=== PATIENT | male | born 1990 | race Asian ===

== ENCOUNTER → 2019-03-14 18:04 | Outpatient (CLI) | payer OTHER, SELFPAY ==
--- NOTE | 2019-03-14 18:06 | DI.MRI.S_ITS ---
PROCEDURE: MR KNEE RT WO CON INDICATIONS: concern for MCL/meniscus injury, clinical concern for internal derangement TECHNIQUE: Noncontrast sagittal PD fast spin echo and T2 fast spin echo with fat saturation, sagittal 3-D FLASH with fat saturation; coronal T1 spin echo and PD fast spin echo with fat saturation, and axial PD fast spin echo with fat saturation through the knee. COMPARISON: None. FINDINGS: Image quality: Excellent. Menisci: The medial and lateral menisci demonstrate normal morphology and internal signal. The meniscal root ligaments appear intact. Cruciate ligaments: The anterior cruciate ligament is poorly seen, yet with a few fibers of the anterior cruciate ligament potentially intact, as on series 7 image 17. The posterior cruciate ligament appears normal. Medial structures: The medial collateral ligament appears intact. A mild amount of fluid can be seen along the MCL. The posterior oblique ligament, semimembranosus tendon insertions, oblique popliteal ligament, and meniscocapsular junction appear intact. Visualized portions of the pes anserinus tendons appear normal. No abnormal bursal fluid. Lateral structures: The lateral collateral ligament, long and short heads of the biceps femoris tendon appear intact. The popliteus tendon appears normal; the popliteofibular ligament appears intact. The posterosuperior and anteroinferior popliteomeniscal fascicles appear intact. The arcuate and fabellofibular ligaments appear intact, on either side of the lateral inferior geniculate artery. Iliotibial band appears normal. Anterior structures: The quadriceps and patellar tendons appear intact. Patellar alignment is normal. No femoral trochlear dysplasia or ventral trochlear prominence. No edema in the infrapatellar fat pad. Bones and cartilage: No bone marrow contusions or fractures. The cartilage of the medial and lateral femorotibial compartments, as well as the patellofemoral compartment, appears normal in thickness. Joint space: There is physiologic knee joint fluid. No Kenney's cyst. Normal appearing synovial plicae are incidentally noted. IMPRESSION: Anterior cruciate ligament tear. A few fibers of the anterior cruciate ligament may remain intact, however. Fluid is seen along the medial collateral ligament, which is suggestive of a strain. Dictated by: Howard Drummond M.D. on 03/14/2019 at 19:08 Approved by: Howard Drummond M.D. on 03/14/2019 at 19:11
== END ==
PROVIDERS: Referring Provider Physician Assistant; Visit Provider Physician Assistant
DX: S83.511A Sprain of anterior cruciate ligament of right knee, initial encounter (principal); X58.XXXA Exposure to other specified factors, initial encounter
CPT/HCPCS: 73721

== ENCOUNTER → 2021-12-31 15:31 | Outpatient (CLI) | payer OTHER, SELFPAY ==
--- NOTE | 2021-12-31 15:33 | DI.RAD.S_ITS ---
PROCEDURE: XR HAND LT MIN 3V INDICATIONS: Left pinky injury TECHNIQUE: 3 views of the hand(s) acquired. COMPARISON: None. FINDINGS: Bones: There is an apparent tiny avulsion fracture seen along the distal aspect of the proximal phalanx of the 5th finger measuring 2 mm. No additional focal bony abnormality can be seen. Soft tissues: No suspicious soft tissue calcifications. IMPRESSION: Apparent 2 mm avulsion fracture fragment seen adjacent to the distal aspect of the proximal phalanx of the 5th finger. Dictated by: Howard Drummond M.D. on 12/31/2021 at 17:34 Approved by: Howard Drummond M.D. on 12/31/2021 at 17:35
== END ==
PROVIDERS: Referring Provider Physician Assistant; Visit Provider Physician Assistant
DX: S69.92XA Unspecified injury of left wrist, hand and finger(s), initial encounter (principal); X58.XXXA Exposure to other specified factors, initial encounter
CPT/HCPCS: 73130

== ENCOUNTER 2022-09-09 10:53 | Emergency (ER) | payer OTHER, SELFPAY ==
[2022-09-09 11:01] VITALS: BP 132/65; PULSE 94; RESP 18; TEMP 36.6; O2SAT 99; BMI 23.6
[2022-09-09 11:06] VITALS: PULSE 99; O2SAT 97
--- NOTE | 2022-09-09 11:18 | ED.GENADULT ---
HPI - General Adult General Chief complaint: Fever Stated complaint: Bad Fever, Pain Time Seen by Provider: 09/09/22 10:58 Source: patient Mode of arrival: Ambulatory History of Present Illness HPI narrative: Patient is an otherwise healthy 32-year-old male is here for evaluation of a fever and sore throat and right ear pain. He denies any abdominal pain. No vomiting. He is having some dysuria. No skin rashes. No diarrhea. He was seen at an outside facility yesterday. Was negative for the flu. Also had a negative strep test. Had labs done which were unremarkable. Does have a throat culture that is pending. He has been taking Tylenol and ibuprofen but is also feeling very fatigued. Related Data Home Medications Medication Instructions Recorded Confirmed diphenhydramine HCl 25 mg capsule 25 mg PO BEDTIME 12/17/18 12/31/21 (Benadryl) Allergies Allergy/AdvReac Type Severity Reaction Status Date / Time No Known Drug Allergies Allergy Verified 12/31/21 14:34 Review of Systems Constitutional Constitutional: Reports system reviewed and no additional complaints, except as documented ENT Ears, Nose, Mouth, and Throat: Reports system reviewed and no additional complaints, except as documented Respiratory Respiratory: Reports system reviewed and no additional complaints, except as documented Gastrointestinal Gastrointestinal: Reports system reviewed and no additional complaints, except as documented Integumentary/Breasts Skin/Breast: Reports system reviewed and no additional complaints, except as documented Neurologic Neurologic: Reports system reviewed and no additional complaints, except as documented Allergic/Immunologic Allergic/Immunologic: Reports system reviewed and no additional complaints, except as documented Patient History Medical History Injury of left little finger Right knee injury Social History Smoking Status: Never smoker Smoking Status: Never smoker Exam Initial Vital Signs Initial Vital Signs: Vital Signs Temperature 97.8 F 09/09/22 11:01 Pulse Rate 94 H 09/09/22 11:01 Respiratory Rate 18 09/09/22 11:01 Blood Pressure 132/65 09/09/22 11:01 Pulse Oximetry 99 09/09/22 11:01 Oxygen Delivery Method Room Air 09/09/22 11:01 Const General: cooperative, comfortable and No ill appearing HENMA Head: normal to inspection and normocephalic Ears: EAC's normal and TM abnormal bulging bilaterally and wth effusion serous bilaterally; not erythematous Throat: posterior oropharynx normal Neck Lymphatic: lymphadenopathy Cardio Palpation: normal PMI Skin General: no rashes or lesions noted Neuro General: patient alert, patient awake and moves all extremities Extrem General: capillary refill normal Course Orders Ordered: Discontinued Medications Ibuprofen (Ibuprofen 400 Mg Tablet) 800 mg PO NOW ONE Stop: 09/09/22 11:20 Last Admin: 09/09/22 11:22 Dose: 800 mg Documented By: JUDIE Vital Signs Vital signs: Vital Signs - 8 hr 09/09/22 11:01 09/09/22 11:06 Temperature 97.8 F Pulse Rate 94 H 99 H Respiratory Rate 18 Blood Pressure 132/65 Pulse Oximetry 99 97 Oxygen Delivery Method Room Air Medical Decision Making Lab Data Labs: Urine Dip Bedside Urine Glucose Negative Bedside Urine Bilirubin - Negative Bedside Urine Ketone - Negative Urine Specific [place] 1.020 Bedside Urine Occult Blood + Bedside Urine pH 6.0 Bedside Urine Protein +/- 15 Bedside Urine Urobilinogen - Negative Bedside Urine Nitrite - Negative Bedside Urine Leukocytes - Negative Esterase Point of care testing: Urine Dip Bedside Urine Glucose Negative Bedside Urine Bilirubin - Negative Bedside Urine Ketone - Negative Urine Specific [place] 1.020 Bedside Urine Occult Blood + Bedside Urine pH 6.0 Bedside Urine Protein +/- 15 Bedside Urine Urobilinogen - Negative Bedside Urine Nitrite - Negative Bedside Urine Leukocytes - Negative Esterase MDM Narrative Medical decision making narrative: Patient's history and physical exam is most consistent with an upper respiratory infection that is most likely viral. He does have anterior cervical lymphadenopathy. He has fluid behind bilateral tympanic membranes. He is having fevers. Sore throat. His flu test was negative. His urine test today is negative. No indication for antibiotics. Told him that he should be received the call from the outside hospital if his throat culture is positive. We discussed use of Tylenol and ibuprofen for fevers. He was given return precautions. He expressed understanding and agreement. Discharge Plan Departure Patient Disposition: Home Clinical Impression: Upper respiratory infection, Fever Instructions: DI for Fever (Symptom) -- Adult Activity Restrictions/Additional Instructions: Your symptoms today are consistent with a viral infection. There was no indication to do any antibiotics. You should receive a call from [facility] if the throat culture grows anything that does require treatment. You can do Tylenol every 4-6 hours and ibuprofen every 6-8 hours as needed for fevers. Be sure that you were increasing your fluid intake. Return to the emergency department for new symptoms. Prescriptions: No Action diphenhydramine HCl [Benadryl] 25 mg capsule 25 mg PO BEDTIME Referrals: Miscellaneous,Doctor, MD [Primary Care Provider] - Stand Alone Forms: Patient Portal/API
[2022-09-09] MEDS: IBUPROFEN 400 MG TABLET 800 MG PO (11:22)
== END 2022-09-09 11:26 | disposition home or self-care (01) ==
PROVIDERS: Emergency Provider Emergency Medicine
DX: J06.9 Acute upper respiratory infection, unspecified (principal); R50.9 Fever, unspecified
CPT/HCPCS: 81003; 99282; 99283